=== PATIENT | female | born 1985 | race Two or more races ===

== ENCOUNTER 2017-04-21 12:19 | Emergency (ER) | payer OTHER ==
[2017-04-21 14:31] LABS: UA SPECIFIC GRAVITY 1.025 (1.005-1.035); microscopic required? YES; urine erythrocyte 1+ (NEGATIVE)
[2017-04-21 14:44] LABS: BASOPHIL % 0.3 % (0-2); PLATELET COUNT 373 x10^3mcL (130-400); RED CELL DISTRIBUTION WIDTH 13.4 % (11.5-14.5)
[2017-04-21 14:51] LABS: CARBON DIOXIDE 27.8 mmol/L (21-32); CHLORIDE SERUM 101 mmol/L (98-107); CREATININE SERUM 0.7 mg/dL (0.6-1.0); GFR1 > 60 mL/min; GLUCOSE SERUM 77 mg/dL (74-106); SODIUM SERUM 137 mmol/L (136-145)
[2017-04-21 14:56] LABS: LIPASE 94 IU/L (73-393)
[2017-04-21 15:25] LABS: ALBUMIN 4.1 g/dL (3.4-5.0); ALKALINE PHOSPHATASE 109 U/L (46-116); ALT/SGPT 29 U/L (14-59); AST/SGOT 24 U/L (15-37); BILIRUBIN TOTAL 0.54 mg/dL (0.20-1.00)
[2017-04-21 15:26] LABS: TOTAL PROTEIN, SERUM 8.3 g/dL (6.4-8.2)
[2017-04-21 16:06] VITALS: BP 121/80
== END 2017-04-21 16:17 | disposition home or self-care (01) ==
LOC: ED 12:19
PROVIDERS: Emergency Medicine
DX: R10.30 Lower abdominal pain, unspecified (principal); R11.2 Nausea with vomiting, unspecified; R42 Dizziness and giddiness; R30.0 Dysuria; R39.15 Urgency of urination; Z90.49 Acquired absence of other specified parts of digestive tract
CPT/HCPCS: 83880; J0696; J1885; J2405; J7030